=== PATIENT | female | born 1930 | race Caucasian/White ===

== ENCOUNTER 2017-12-18 09:50 | Outpatient (CLI) | payer OTHER | END 2017-12-18 10:02 | disposition home or self-care (01) | LOC: LAB 09:50 | DX: M06.80 Other specified rheumatoid arthritis, unspecified site (principal); N39.0 Urinary tract infection, site not specified; E78.4 Other hyperlipidemia; M05.79 Rheumatoid arthritis with rheumatoid factor of multiple sites without organ or systems involvement ==

== ENCOUNTER 2018-01-20 10:01 | Outpatient (CLI) | payer OTHER | END 2018-01-20 10:11 | disposition home or self-care (01) | LOC: LAB 10:01 | DX: N39.0 Urinary tract infection, site not specified (principal); R82.79 Other abnormal findings on microbiological examination of urine ==

== ENCOUNTER 2018-03-27 07:37 | Outpatient (CLI) | payer OTHER | END 2018-03-27 07:39 | disposition home or self-care (01) | LOC: SONOGRAMA 07:37 | DX: R10.84 Generalized abdominal pain (principal) ==

== ENCOUNTER 2018-10-02 08:23 | Outpatient (CLI) | payer OTHER | END 2018-10-02 13:05 | disposition home or self-care (01) | LOC: LAB 08:23 | DX: A37.90 Whooping cough, unspecified species without pneumonia (principal); R05 Cough; I10 Essential (primary) hypertension; M06.9 Rheumatoid arthritis, unspecified ==

== ENCOUNTER → 2019-02-08 | Outpatient (CLI) | payer OTHER | END | disposition home or self-care (01) | LOC: RAD 13:26 | DX: M19.031 Primary osteoarthritis, right wrist (principal) ==

== ENCOUNTER 2019-06-10 07:28 | Outpatient (CLI) | payer OTHER | END 2019-06-10 07:29 | disposition home or self-care (01) | LOC: SONOGRAMA 07:28 | DX: R10.84 Generalized abdominal pain (principal) ==

== ENCOUNTER 2022-04-09 08:29 | Outpatient (CLI) | payer OTHER | END 2022-04-09 08:33 | disposition home or self-care (01) | LOC: RAD 08:29 | PROVIDERS: ATTEND Internal Medicine Cardiovascular Disease | DX: M41.86 Other forms of scoliosis, lumbar region (principal); M19.90 Unspecified osteoarthritis, unspecified site ==

== ENCOUNTER 2022-05-23 10:32 | Outpatient (CLI) | payer OTHER | END 2022-05-23 10:39 | disposition home or self-care (01) | LOC: RAD 10:32 | PROVIDERS: ATTEND Specialist | DX: J45.998 Other asthma (principal) ==

== ENCOUNTER → 2022-06-13 | Outpatient (CLI) | payer OTHER | END | disposition home or self-care (01) | LOC: RAD 11:46 | PROVIDERS: ATTEND Physical Medicine & Rehabilitation | DX: M54.6 Pain in thoracic spine (principal); M54.50 Low back pain, unspecified ==